=== PATIENT | female | born 1965 | race Caucasian/White ===

== ENCOUNTER 2020-05-19 08:10 | Outpatient (CLI) | payer BC, SELFPAY ==
--- NOTE | ~2020-05-19 | MM_ITS ---
EXAMINATION: MM screening [facility] BI w josep HISTORY: Screening mammogram TECHNIQUE: Craniocaudal and mediolateral oblique 3-D tomosynthesis images were obtained and synthetic 2-D images were generated. CAD analysis was submitted and interpreted. COMPARISON: No prior mammogram is available for comparison at this institution. BREAST PARENCHYMAL COMPOSITION: There are scattered areas of fibroglandular density. FINDINGS: RIGHT BREAST: There is an asymmetry in the middle third of the inner breast 5 cm from the nipple on t he craniocaudal view. LEFT BREAST: There is no evidence of suspicious mass, calcification, or architectural distortion to s uggest malignancy. IMPRESSION: 1. Right breast asymmetry on the craniocaudal view which may represent the patient's baseline however no comparison is currently available. 2. Comparison with prior mammograms is necessary. BI-RADS Category 0: Incomplete: Needs comparison with prior mammograms. Reviewed, dictated and finalized at location A. IMPRESSION: 1. Right breast asymmetry on the craniocaudal view which may represent the fern ent's baseline however no comparison is currently available. 2. Comparison with prior mammograms is necessary. BI-RADS Category 0: Incomplete: Needs comparison with prior mammograms.
== END 2020-05-19 08:11 | disposition home or self-care (01) ==
PROVIDERS: PCP Family Medicine
DX: Z12.31 Encounter for screening mammogram for malignant neoplasm of breast (principal)
CPT/HCPCS: 77063; 77067

== ENCOUNTER 2021-08-16 17:16 | Outpatient (CLI) | payer BC, SELFPAY ==
--- NOTE | ~2021-08-16 | MM_ITS ---
EXAMINATION: MM screening [facility] BI w josep HISTORY: Screening TECHNIQUE: Craniocaudal and mediolateral oblique 3-D tomosynthesis images were obtained and synthetic 2-D images were generated. CAD analysis was submitted and interpreted. COMPARISON: Comparison to multiple prior studies sequentially, with oldest reviewed study dated 04/10. BREAST PARENCHYMAL COMPOSITION: Breast composed of scattered areas of fibroglandular density FINDINGS: There is a developing focal asymmetry in the central aspect of the right breast posteriorly . The left breast is stable without evidence for malignancy. IMPRESSION: 1. Developing right breast asymmetry. 2. Additional mammographic views and possible breast ultrasound are recommended. BI-RADS Category 0: Incomplete: Needs additional imaging evaluation. Reviewed, dictated and finalized at location A. DE SALES PROFESSIONAL IMPRESSION: 1. Developing right breast asymmetry. 2. Additional mammographic views and possible breast ultrasound are recommended . BI-RADS Category 0: Incomplete: Needs additional imaging evaluation.
== END 2021-08-16 17:17 | disposition home or self-care (01) ==
PROVIDERS: PCP Family Medicine
DX: Z12.31 Encounter for screening mammogram for malignant neoplasm of breast (principal); R92.8 Other abnormal and inconclusive findings on diagnostic imaging of breast
CPT/HCPCS: 77063; 77067

== ENCOUNTER 2021-09-16 11:56 | Outpatient (CLI) | payer BC, SELFPAY ==
--- NOTE | ~2021-09-16 | MM_ITS ---
EXAMINATION: MM diagnostic y[facility] RT w josep HISTORY: Focal asymmetry of the right breast on screening mammogram TECHNIQUE: Additional 3-D tomosynthesis images of the right breast were performed and synthetic 2-D i mages were generated. CAD analysis was submitted and interpreted. COMPARISON: 08/16/2021, 05/19/2020 BREAST PARENCHYMAL COMPOSITION: There are scattered areas of fibroglandular density. FINDINGS: There is a return to baseline fibroglandular appearance with spot compression of the right breast in the area questioned on screening mammogram. No suspicious mass, calcification, or structural architect ural distortion are identified. IMPRESSION: 1. No mammographic evidence of malignancy. 2. Recommend routine screening mammography in one year. BI-RADS Category 1: Negative Reviewed, dictated and finalized at location A. PL SQL DEVELOPER
== END 2021-09-16 11:57 | disposition home or self-care (01) ==
LOC: ANHIMG 11:58
PROVIDERS: PCP Family Medicine
DX: R92.8 Other abnormal and inconclusive findings on diagnostic imaging of breast (principal)
CPT/HCPCS: 77061; 77065; G0279

== ENCOUNTER 2022-04-10 23:48 | Emergency (ER) | payer BC, SELFPAY ==
[2022-04-10 23:52] VITALS: BP 146/89; PULSE 95; RESP 14; TEMP 36.2; O2SAT 99
[2022-04-11 00:03] VITALS: BP 146/89; PULSE 95; RESP 18; O2SAT 99
--- NOTE | 2022-04-11 00:23 | ED.GENADULT ---
HPI - General Adult General Chief complaint: Headache Stated complaint: Headache, Time Seen by Provider: 04/11/22 00:10 History of Present Illness HPI narrative: This is a 56-year-old female presenting to the ED with a headache. The patient said the headache started yesterday afternoon. It was gradual in onset. It is a throbbing pain over her temples and along the back of her head. Did not radiate down her neck. A 7/10 in intensity. She has never experienced pain like this before there are no exacerbating or alleviating factors. She has had some photophobia and some nausea but no vomiting. She has taken multiple doses of Tylenol with no relief. Denies fever, chills, vomiting, vertigo, diplopia, dysphagia, dystaxia or other neurologic findings. Related Data Allergies Allergy/AdvReac Type Severity Reaction Status Date / Time No Known Allergies Allergy Verified 04/11/22 00:05 Review of Systems Review of Systems: CONSTITUTIONAL: Denies night sweats. EYES: No eye pain ENT: Denies rhinorrhea CARDIOVASCULAR: Denies palpitations RESPIRATORY: Denies hemoptysis GASTROINTESTINAL: Denies hematemesis GENITOURINARY: Denies hematuria. SKIN: Denies rash MUSCULOSKELETAL: Denies myalgia. NEUROLOGIC: Denies weakness. PSYCHIATRIC: Denies delusions PMFSH Past Medical History Medical History Hypothyroid Surgical History Surgical History H/O shoulder surgery Exam Narrative: APPEARANCE: No apparent distress. Head atraumatic. EYES: PERRLA/EOMI, NOSE: Normal no drainage NECK: Supple, Trachea midline RESPIRATORY: CTAB, No increased work of breathing. CARDIOVASCULAR: S1S2 appreciated ABDOMINAL: Soft, nontender, nondistended, MUSCULOSKELETAl: No obvious deformities NEURO: Alert. Cranial nerves 2-12 grossly intact. Sensation light touch, motor function cerebellar function intact for 4 extremities. Gait exam was normal. SKIN:: Warm, dry. Normal color PSYCHIATRIC: Normal affect Course Vital Signs Vital signs: Vital Signs Temperature 97.2 F L 04/10/22 23:52 Pulse Rate 95 04/10/22 23:52 Respiratory Rate 14 04/10/22 23:52 Blood Pressure 146/89 H 04/10/22 23:52 Pulse Oximetry 99 04/10/22 23:52 Temperature 97.2 F L 04/10/22 23:52 Pulse Rate 95 04/11/22 00:03 Respiratory Rate 18 04/11/22 00:03 Blood Pressure 146/89 H 04/11/22 00:03 Pulse Oximetry 99 04/11/22 00:03 Medical Decision Making MDM Narrative Medical decision making narrative: Patient's headache was not sudden or maximal in onset. There are no focal deficits on exam. Subarachnoid hemorrhage is unlikely at this time. There is no history of fever. neck is supple evaluation without meningismus. Meningitis is felt to be unlikely. No traumatic history or signs of trauma evaluation. Risk factors for cerebral venous thrombosis reviewed. no visual acuity changes, cerebral venous thrombosis healthy unlikely at this time. No ocular signs of acute glaucoma. Patient's headache is felt to be benign cephalgia and reasonable for outpatient management. Patient was given a migraine cocktail and discharged home. Vital Signs Vital Signs: Vital Signs Temperature 97.2 F L 04/10/22 23:52 Pulse Rate 95 04/10/22 23:52 Respiratory Rate 14 04/10/22 23:52 Blood Pressure 146/89 H 04/10/22 23:52 Pulse Oximetry 99 04/10/22 23:52 Temperature 97.2 F L 04/10/22 23:52 Pulse Rate 95 04/11/22 00:03 Respiratory Rate 18 04/11/22 00:03 Blood Pressure 146/89 H 04/11/22 00:03 Pulse Oximetry 99 04/11/22 00:03 Discharge Plan Discharge Clinical Impression: Headache Patient Disposition: Home, Self-Care Condition: Stable Instructions: Antibiotic Form, Acute Headache (DC) Additional Instructions: return emergency department if you develop numbness tingling or weakness to any extremity or if he d
[2022-04-11] MEDS: diphenhydrAMINE HCl INJ 50 MG/ML VIAL 25 MG IM (00:28)
[2022-04-11] MEDS: PROCHLORPERAZINE EDISYLATE 10 MG/2 ML VIAL IM (00:30)
[2022-04-11] MEDS: KETOROLAC 30 MG/ML VIAL (*BKC) 15 MG IM (00:32)
[2022-04-11 01:16] VITALS: BP 149/82; PULSE 83; RESP 20; O2SAT 100
== END 2022-04-11 01:12 | disposition home or self-care (01) ==
LOC: ANHED 04-11 00:29
PROVIDERS: Emergency Provider Emergency Medicine; PCP Family Medicine
DX: R51.9 Headache, unspecified (principal); E03.9 Hypothyroidism, unspecified
CPT/HCPCS: 96372; 99284; J0780; J1200; J1885

== ENCOUNTER 2022-05-31 16:33 | Emergency (ER) | payer BC, SELFPAY ==
[2022-05-31 16:36] VITALS: BP 143/81; PULSE 85; RESP 16; TEMP 36.6; O2SAT 100
--- NOTE | 2022-05-31 16:52 | ED.ALLEREA ---
HPI - Allergic Reaction General Chief complaint: Allergic Reaction Stated complaint: allergic reaction to face with swelling Time Seen by Provider: 05/31/22 16:43 Source: patient Mode of arrival: ambulatory Limitations: no limitations History of Present Illness HPI narrative: Patient presents complaints of swelling to the face that started after receiving light therapy and then using calming cream. States has no difficulty breathing or swallowing. States everything is localized to the face. Has been using Zyrtec at home and applying cool compresses. Denies other problems or complaints at this time. Related Data Allergies Allergy/AdvReac Type Severity Reaction Status Date / Time benzoin Allergy Swelling Verified 05/31/22 16:40 Review of Systems Review of Systems: CONSTITUTIONAL: Denies fever, chills, or sweats. EYES: Denies visual changes, redness, or discharge. ENT: Denies rhinorrhea, congestion, sore throat, or otalgia. CARDIOVASCULAR: Denies chest pain, palpitations, or edema. RESPIRATORY: Denies cough or dyspnea. GASTROINTESTINAL: Denies abdominal pain, nausea, vomiting, or diarrhea. GENITOURINARY: Denies dysuria or hematuria. SKIN: Swelling and itching to surrounding eye areas. MUSCULOSKELETAL: Denies back pain, joint pain, or myalgia. NEUROLOGIC: Denies headache, numbness, or weakness. PSYCHIATRIC: Denies anxiety or depression. All systems reviewed & are unremarkable except as noted in HPI and below PMFSH Past Medical History Medical History Hypothyroid Surgical History Surgical History H/O shoulder surgery Exam Narrative: GENERAL: Well-appearing, well-nourished, and in no acute distress. HEAD: Normocephalic, atraumatic. EYES: PERRLA and EOMI. ENT: Nares clear, no rhinorrhea or epistaxis. Mucous membranes moist. NECK: Supple. CHEST: Clear to auscultation. No respiratory distress. HEART: Regular rate and rhythm. No murmur heard. Normal peripheral pulses. ABDOMEN: Soft, nontender, nondistended, normal active bowel sounds. EXTREMITIES: Normal range of motion. No edema. SKIN: Warm, dry, no rash. Upper facial skin edematous with erythema. Appears allergic in nature. NEURO: No focal deficits. Alert and oriented x3. PSYCH: Normal mood and affect. Course Vital Signs Vital signs: Vital Signs Temperature 36.6 C 05/31/22 16:36 Pulse Rate 85 05/31/22 16:36 Respiratory Rate 16 05/31/22 16:36 Blood Pressure 143/81 H 05/31/22 16:36 Pulse Oximetry 100 05/31/22 16:36 Oxygen Delivery Room Air 05/31/22 16:36 Temperature 36.6 C 05/31/22 16:36 Pulse Rate 82 05/31/22 17:13 Respiratory Rate 20 05/31/22 17:13 Blood Pressure 126/78 05/31/22 17:13 Pulse Oximetry 99 05/31/22 17:13 Oxygen Delivery Room Air 05/31/22 16:36 Discharge Plan Discharge Clinical Impression: Contact dermatitis Qualifiers: Contact dermatitis type: allergic Contact dermatitis trigger: drugs in contact with skin Qualified Code(s): L23.3 - Allergic contact dermatitis due to drugs in contact with skin Patient Disposition: Home, Self-Care Condition: Stable Instructions: Antibiotic Form, Contact Dermatitis (ED) Additional Instructions: Cool washcloth to face/eyes several times per day. Continue Zyrtec and Benadryl and directed. Medication as prescribed. Return to the ER for any concerns or worsening condition. Prescriptions: New prednisone 20 mg tablet 20 mg PO BID 5 Days Qty: 10 0RF triamcinolone acetonide 0.1 % cream 1 applic topical BID Qty: 30 0RF Follow-up/Referrals: Titi,Fernanda Bush MD [Primary Care Provider] -
[2022-05-31] MEDS: methylPREDNISolone SOD SUCC 125 MG VIAL IV PUSH (16:58)
[2022-05-31] MEDS: diphenhydrAMINE HCl INJ 50 MG/ML VIAL IV PUSH (16:58)
[2022-05-31 17:13] VITALS: BP 126/78; PULSE 82; RESP 20; O2SAT 99
== END 2022-05-31 18:03 | disposition home or self-care (01) ==
PROVIDERS: Emergency Provider Nurse Practitioner; PCP Family Medicine
DX: L23.3 Allergic contact dermatitis due to drugs in contact with skin (principal); T49.95XA Adverse effect of unspecified topical agent, initial encounter; E03.9 Hypothyroidism, unspecified
CPT/HCPCS: 96374; 96375; 99284; J1200; J2930

== ENCOUNTER 2022-11-16 15:21 | Outpatient (CLI) | payer BC, SELFPAY ==
--- NOTE | ~2022-11-16 | MM_ITS ---
EXAMINATION: MM screening [facility] BI w josep HISTORY: Screening TECHNIQUE: Craniocaudal and mediolateral oblique 3-D tomosynthesis images were obtained and synthetic 2-D images were generated. CAD analysis was submitted and interpreted. COMPARISON: Comparison to multiple prior studies sequentially, with oldest reviewed study dated 05/21. BREAST PARENCHYMAL COMPOSITION: There are scattered areas of fibroglandular density. FINDINGS: There is no evidence of suspicious mass, calcification, or architectural distortion to sugg est malignancy in either breast. There has been no suspicious interval change. IMPRESSION: 1. No mammographic evidence of malignancy. 2. Recommend routine screening mammography in one year. BI-RADS Category 1: Negative Reviewed, dictated and finalized at location A.
== END 2022-11-16 15:22 | disposition home or self-care (01) ==
PROVIDERS: PCP Family Medicine
DX: Z12.31 Encounter for screening mammogram for malignant neoplasm of breast (principal)
CPT/HCPCS: 77063; 77067

== ENCOUNTER 2024-01-28 07:33 | Outpatient (CLI) | payer BC, SELFPAY ==
--- NOTE | ~2024-01-28 | MM_ITS ---
EXAMINATION: MM screening [facility] BI w josep HISTORY: Screening TECHNIQUE: Craniocaudal and mediolateral oblique 3-D tomosynthesis images were obtained and synthetic 2-D images were generated. CAD analysis was submitted and interpreted. COMPARISON: Comparison to multiple prior studies sequentially, with oldest reviewed study dated 01/10. BREAST PARENCHYMAL COMPOSITION: Not dense: There are scattered areas of fibroglandular density. FINDINGS: There is a developing mass in the lower outer quadrant of the left breast, middle third. Th e right breast is stable without evidence for malignancy. IMPRESSION: 1. Developing left breast mass. 2. Additional mammographic views and possible breast ultrasound are recommended. BI-RADS Category 0: Incomplete: Needs additional imaging evaluation. Reviewed, dictated and finalized at location B. IMPRESSION: 1. Developing left breast mass. 2. Additional mammographic views and possible breast ultrasound are recommended . BI-RADS Category 0: Incomplete: Needs additional imaging evaluation.
== END 2024-01-28 07:34 | disposition home or self-care (01) ==
LOC: ANHIMG 07:37
PROVIDERS: PCP Physician Assistant
DX: Z12.31 Encounter for screening mammogram for malignant neoplasm of breast (principal); R92.8 Other abnormal and inconclusive findings on diagnostic imaging of breast
CPT/HCPCS: 77063; 77067

== ENCOUNTER 2024-02-15 10:22 | Outpatient (CLI) | payer BC, SELFPAY ==
--- NOTE | ~2024-02-15 | MMUS_ITS ---
EXAMINATION: MM diagnostic yelitza LT w josep, US breast LT limited HISTORY: Developing left breast mass TECHNIQUE: Additional 3-D tomosynthesis images of the left breast were performed and synthetic 2-D im ages were generated. CAD analysis was submitted and interpreted. High resolution limited left breast ultrasound was performed. COMPARISON: 01/28/2024, 10/20/2022 FINDINGS: MAMMOGRAPHIC FINDINGS: There are scattered fibroglandular densities. Spot compression views demonstrate a persistent 6 mm ovoid mass at the outer, lower left breast. ULTRASOUND: At the 5:00 position left breast, 2 cm from the nipple, there is a 5 x 3 x 6 mm mildly complex cyst w ith minimal debris and thin septation present. This is wider than tall with circumscribed borders and posterior through transmission. IMPRESSION: 6 mm mildly complex cyst at the 5:00 position left breast, as detailed above. This correlates with t he mammographic finding, and is probably benign. Six-month follow-up ultrasound recommended to reasse ss. BI-RADS category 3, probably benign findings. Reviewed, dictated and finalized at location M. IMPRESSION: 6 mm mildly complex cyst at the 5:00 position left breast, as detailed above. This correlates with the mammographic finding, and is probably benign. Six-dirk h follow-up ultrasound recommended to reassess. BI-RADS category 3, probably benign findings.
== END 2024-02-15 10:23 | disposition home or self-care (01) ==
LOC: ANHIMG 10:25
PROVIDERS: PCP Physician Assistant
DX: R92.8 Other abnormal and inconclusive findings on diagnostic imaging of breast (principal)
CPT/HCPCS: 76642; 77061; 77065; G0279

== ENCOUNTER 2024-08-07 16:25 | Emergency (ER) | payer BC, SELFPAY ==
--- NOTE | ~2024-08-07 | XR_ITS ---
EXAMINATION: XR chest 2V DATE: 08/07/2024 17:23 INDICATION: Cough. Recent pneumonia exposure TECHNIQUE: PA and lateral views of the chest were obtained. COMPARISON: None FINDINGS: The lungs are clear with no focal airspace opacities, pulmonary edema, pleural effusion or pneumothor ax. The cardiomediastinal silhouette is normal. Visualized bones and soft tissues are unremarkable. IMPRESSION: 1. No acute cardiopulmonary disease. Reviewed, dictated and finalized at location A. [employer] P[employer]ER [employer]ATING
[2024-08-07 16:25] VITALS: BP 147/109; PULSE 103; RESP 16; TEMP 36.4; O2SAT 100
--- NOTE | 2024-08-07 17:14 | ED.URI ---
HPI - URI/Sore Throat General Chief Complaint: Upper Respiratory Infection Stated Complaint: pretty sure I have the flu Time Seen by Provider: 08/07/24 17:14 Source: patient Mode of arrival: ambulatory Limitations: no limitations History of Present Illness HPI Narrative: Patient is a 59 y/o female who presents to the ED with c/o cough and URI sx's. Patient reports she began feeling ill on Sunday. C/o cough, headache, chills, nausea, congestion, myalgias, fatigue. Has been taking Tylenol and Ibuprofen for sx's. States several of her family members have been diagnosed with influenza A. She also states her daughter has had pneumonia. She is concerned she may have pneumonia. Denies known fever. Denies vomiting, shortness of breath. Did not receive flu shot this year. Related Data Allergies Allergy/AdvReac Type Severity Reaction Status Date / Time benzoyl peroxide Allergy Unknown Verified 02/15/24 10:53 benzoin Allergy Swelling Verified 02/15/24 10:53 Review of Systems Review of Systems: All systems reviewed & are unremarkable except as noted in HPI. All systems reviewed & are unremarkable except as noted in HPI and below PMFSH Past Medical History Medical History Hypothyroid Surgical History Surgical History H/O shoulder surgery Family History Family History Father Family history of malignant neoplasm of kidney Social History Social History Smoking status: Never smoker Alcohol intake: current Exam Narrative: GENERAL: Well appearing, well-nourished, non-toxic, in no acute distress. HEAD: Normocephalic, atraumatic. RESPIRATORY: Airway patent, respirations nonlabored. Clear to auscultation bilaterally, no rales, rhonchi, wheezing. No significant focal lung sounds. CARDIOVASCULAR: Regular rate and rhythm without murmurs, rubs, or gallops. MUSCULOSKELETAL: Moves all extremities. No gross deformities. SKIN: Warm, dry, normal color. NEURO: A&O X3. Speech clear. PSYCHIATRIC: Appropriate mood and affect. Normal interaction. Course Vital Signs Vital signs: Vital Signs Temperature 97.6 F 08/07/24 16:25 Pulse Rate 103 H 08/07/24 16:25 Respiratory Rate 16 08/07/24 16:25 Blood Pressure 147/109 H 08/07/24 16:25 Pulse Oximetry 100 08/07/24 16:25 Temperature 97.6 F 08/07/24 16:25 Pulse Rate 103 H 08/07/24 16:25 Respiratory Rate 16 08/07/24 16:25 Blood Pressure 147/109 H 08/07/24 16:25 Pulse Oximetry 100 08/07/24 16:25 Oxygen Delivery Room Air 08/07/24 18:26 MDM - URI/Sore Throat MDM Narrative Medical decision making narrative: Patient presented to ED with several day history of URI symptoms, body aches, viral syndrome. Borderline tachycardic upon arrival. In no acute distress. Reports that several of her family members have tested positive for influenza A. Also wanting to be evaluated for pneumonia. viral swabs are actually negative here. Chest x-ray is clear. Discussed lab and imaging findings with patient. Given patient's significant exposure to influenza and acute symptomatology, advised patient to consider herself positive and act accordingly. Will Rx tessalon perles and nausea medication for home. Discussed additional [id number] therapies to try for symptomatic relief. Recommended close follow-up with PCP for further evaluation. Given return precautions. Discharged in stable condition. Medical Records Attestation: I reviewed the patient's medical records. Lab Data Attestation: I reviewed the patient's lab results. Labs: Lab Results 08/07/24 Range/Units 17:18 Influenza A (RT-PCR) Negative (Negative) Influenza B (RT-PCR) Negative (Negative) RSV (RT-PCR) Negative (Negative) SARS-CoV-2 RNA (RT-PCR) Negative (Negative) Imaging Data Attestation: I personally reviewed and interpreted this imaging study as follows: Radiologist's impression: ITS Impressions Chest X-Ray 08/07/24 17:25 IMPRESSION: 1. No acute cardiopulmonary disease. Discharge Plan Discharge Clinical Impression: Exposure to influenza Upper respiratory infection Qualifiers: URI type: unspecified URI Qualified Code(s): J06.9 - Acute upper respiratory infection, unspecified Patient Disposition: Home, Self-Care Condition: Stable Instructions: Antibiotic Form, Influenza (ED), Upper Respiratory Infection (ED), Viral Syndrome (ED), Cold Symptoms (ED) Additional Instructions: Your chest x-ray was clear. There was no evidence of pneumonia. Your testing for influenza, RSV, COVID were negative. It is recommended to consider yourself positive for influenza given your close exposure and current symptoms. Isolate at home as you are likely contagious. Stay well-hydrated at home. Recommend electrolyte rich fluids, Gatorade, Pedialyte, body armor. Utilize Zofran as needed for nausea. Utilize Tessalon Perles as needed for cough. Recommend continuing Tylenol and Ibuprofen for discomfort and/or fevers. Recommend [id number] cough and cold medicines for symptom relief, Delsym, Mucinex, DayQuil, NyQuil, Sudafed, Robitussin, TheraFlu. Follow with primary care doctor upon resolution of symptoms. Return to the ED if you experience chest pain, difficulty breathing, unable to keep down food or drink, severe pain, or any other symptoms of concern. Patient Language: Tunisian Prescriptions: New benzonatate 200 mg capsule 200 mg PO TID PRN (Reason: cough) Qty: 15 0RF ondansetron 4 mg tablet,disintegrating 4 mg PO Q8H PRN (Reason: nausea and vomiting) Qty: 15 0RF No Action prednisone 20 mg tablet 20 mg PO BID 5 Days Qty: 10 0RF triamcinolone acetonide 0.1 % cream 1 applic topical BID Qty: 30 0RF Follow-up/Referrals: Davion,MARGARITA Moss [Primary Care Provider] - Time of Disposition: 18:12
[2024-08-07 17:58] LABS: Influenza A QL RT-PCR Negative (Negative); Influenza B QL RT-PCR Negative (Negative); RSV RNA, RT-PCR Negative (Negative); SARS-CoV-2 RNA PCR Negative (Negative)
== END 2024-08-07 18:27 | disposition home or self-care (01) ==
PROVIDERS: Emergency Provider Physician Assistant; PCP Physician Assistant
DX: J06.9 Acute upper respiratory infection, unspecified (principal); Z20.822 Contact with and (suspected) exposure to COVID-19; E03.9 Hypothyroidism, unspecified
CPT/HCPCS: 71046; 87637; 99283

== ENCOUNTER 2025-01-15 09:30 | Outpatient (CLI) | payer BC, SELFPAY ==
--- NOTE | ~2025-01-15 | MMUS_ITS ---
EXAMINATION: US breast LT limited, MM diagnostic yelitza BI w josep HISTORY: Follow-up left breast mass TECHNIQUE: Additional 3-D tomosynthesis images of the left breast were performed and synthetic 2-D im ages were generated. CAD analysis was submitted and interpreted. High resolution Limited left breast ultrasound was performed. COMPARISON: Comparison to multiple prior studies sequentially, with oldest reviewed study dated 05/19. BREAST PARENCHYMAL COMPOSITION: Not dense: There are scattered areas of fibroglandular density. FINDINGS: MAMMOGRAPHIC FINDINGS: The breasts are stable. No new masses, calcifications or architectural distortion in either breast to suggest malignancy. ULTRASOUND: Limited left breast ultrasound: At 5:00, 2 cm from the nipple there is an oval hypoechoic mass measur ing 3 mm, likely benign complicated cyst. No internal vascularity. There is subtle posterior acoustic enhancement. IMPRESSION: 1. Probable benign complicated 3 mm cyst of the left breast at 5:00, 2 cm from the nipple. 2. Given one year of interval stability, recommend 12 month followup screening bilateral mammogram an d Limited left breast ultrasound BI-RADS category 3, probably benign findings. Reviewed, dictated and finalized at location A. IMPRESSION: 1. Probable benign complicated 3 mm cyst of the left breast at 5:00, 2 cm from the nipple. 2. Given one year of interval stability, recommend 12 month followup screening bilateral mammogram and Limited left breast ultrasound BI-RADS category 3, probably benign findings.
== END 2025-01-15 09:31 | disposition home or self-care (01) ==
LOC: MICIMG 09:33
DX: Z12.31 Encounter for screening mammogram for malignant neoplasm of breast (principal); R92.8 Other abnormal and inconclusive findings on diagnostic imaging of breast
CPT/HCPCS: 76642; 77062; 77066; G0279